=== PATIENT | female | born 1945 | race African-American/Black ===

== ENCOUNTER 2023-07-23 20:11 | Inpatient (IN) | payer MEDICARE, OTHER ==
[~2023-07-23] VITALS: Ht 177.8 cm; Wt 90.7 kg
[2023-07-23 21:58] LABS: BASOPHILS # (AUTO) 0.1 K/uL (0.0-0.2); BASOPHILS % (AUTO) 0.4 % (0.0-2.0); HEMATOCRIT 40 % (33-45); HEMOGLOBIN 12.4 g/dL (11.5-14.8); LYMPHOCYTES # (AUTO) 1.1 K/uL (0.8-4.8); LYMPHOCYTES % (AUTO) 7.7 % (20.0-44.0); MEAN CORPUSCULAR HEMOGLOBIN 22 PG (26.0-33.0); MEAN CORPUSCULAR HGB CONC 31 g/dl (31.0-36.0); MEAN CORPUSCULAR VOLUME 71 fL (82-100); MONOCYTES # (AUTO) 0.6 K/uL (0.1-1.30); MONOCYTES % (AUTO) 4.4 % (2.0-12.0); NEUTROPHILS # (AUTO) 12.4 K/uL (1.8-8.9); NEUTROPHILS % (AUTO) 87.5 % (43.0-81.0); PLATELET COUNT (AUTO) 146 K/uL (150-450); RED BLOOD CELL COUNT(AUTO) 5.58 MIL/uL (4.0-5.2); RED CELL DISTRIBUTION WIDTH 16.8 % (11.5-15.0); WHITE BLOOD COUNT (AUTO) 14.2 K/uL (4.3-11.0)
[2023-07-23 22:21] LABS: ALANINE AMINOTRANSFERASE 66 U/L (12-78); ALBUMIN 3.3 g/dL (3.4-5.0); ALKALINE PHOSPHATASE 171 U/L (46-116); ASPARTATE AMINOTRANSFERASE 40 U/L (15-37); BILIRUBIN,DIRECT 0.4 mg/dL (0.0-0.2); BILIRUBIN,TOTAL 1.1 mg/dL (0.2-1.0); CALCIUM, SERUM 10.2 mg/dL (8.5-10.1); CARBON DIOXIDE 23 mmol/L (21-32); CHLORIDE 96 mmol/L (98-107); CREATININE 1.4 mg/dL (0.6-1.3); GLUCOSE 189 mg/dL (74-106); POTASSIUM 4.5 mmol/L (3.5-5.1); SODIUM SERUM 131 mmol/L (136-145); TOTAL PROTEIN, SERUM 8.6 g/dL (6.4-8.2); UREA NITROGEN, BLOOD 14 mg/dL (7-18)
[2023-07-23 22:24] LABS: INR 1.06 (0.91-1.10); PROTHROMBIN TIME 11.2 SECS (9.2-11.1)
[2023-07-23 22:28] LABS: LACTIC ACID 4.1 mmol/L (0.4-2.0)
[2023-07-23] MEDS ORDERED: CEFTRIAXONE 1GM BAG (ER ONLY) 50 ML IV ONE (22:41)
[2023-07-23] MEDS ORDERED: AZITHROMYCIN 500 MG VIAL ONE (22:42)
[2023-07-23] MEDS: CEFTRIAXONE 1GM BAG (ER ONLY) 50 ML IV ONE (22:46)
[2023-07-23] MEDS: AZITHROMYCIN 500 MG in IV D5W 250 ML IV ONE (22:52)
[2023-07-23] MEDS ORDERED: ACETAMINOPHEN ES 500 MG TABLET ONE (23:27)
[2023-07-23] MEDS: ACETAMINOPHEN ES 500 MG TABLET PO ONE (23:30)
[2023-07-24] MEDS ORDERED: MAG HYDROX/AL HYDROX/SIMETH 30 ML UDC PO PRN
[2023-07-24] MEDS ORDERED: ONDANSETRON HCL/PF 4 MG/2 ML VIAL IVP PRN
[2023-07-24] MEDS ORDERED: Z GUARD REMEDY 4 OZ OINT TP PRN
[2023-07-24] MEDS ORDERED: ZOLPIDEM TARTRATE 5 MG TABLET PO PRN
[2023-07-24 00:19] LABS: APPEARANCE,URINE CLEAR (CLEAR); BILIRUBIN,URINE NEGATIVE (NEGATIVE); BLOOD, URINE 2+ Ery/uL (NEGATIVE); COLOR,URINE YELLOW (YELLOW); KETONES,URINE NEGATIVE (NEGATIVE); LEUKOCYTE ESTERASE ,URINE NEGATIVE (NEGATIVE); NITRITE, URINE NEGATIVE (NEGATIVE); PROTEIN,URINE 2+ mg/dl (NEGATIVE); UGLUCOSE NEGATIVE (NEGATIVE)
[2023-07-24 00:26] LABS: ADD URINE CULTURE NO; BACTERIA,URINE Rare /HPF (None Seen); SQUAMOUS EPITHELIAL CELL,UR Rare /HPF (None Seen); WBC,URINE 0-2 /HPF (0-3)
[2023-07-24 00:32] LABS: ALCOHOL, BLOOD < 3 mg/dL (0-10)
[2023-07-24 00:36] LABS: SERUM AMMONIA 7 umol/L (11-32)
[2023-07-24 00:40] LABS: AMPHETAMINE, URINE NEGATIVE (NEGATIVE); BARBITURATE, URINE NEGATIVE (NEGATIVE); BENZODIAZEPINE, URINE NEGATIVE (NEGATIVE); CANNABINOID, URINE NEGATIVE (NEGATIVE); COCCAINE, URINE NEGATIVE (NEGATIVE); OPIATE, URINE NEGATIVE (NEGATIVE); PHENCYCLIDINE SCREEN,URINE NEGATIVE (NEGATIVE)
[2023-07-24 00:46] LABS: THYROID STIMULATING HORMONE 1.973 uIU/mL (0.358-3.74)
[2023-07-24] MEDS: ACETAMINOPHEN 325 MG TABLET PO PRN (03:45)
[2023-07-24] MEDS: IV NS 0.9% 1,000 ML IV PRN (04:05)
[2023-07-24 07:25] LABS: BASOPHILS # (AUTO) 0.1 K/uL (0.0-0.2); BASOPHILS % (AUTO) 0.5 % (0.0-2.0); HEMATOCRIT 34 % (33-45); HEMOGLOBIN 10.8 g/dL (11.5-14.8); LYMPHOCYTES # (AUTO) 1.4 K/uL (0.8-4.8); MEAN CORPUSCULAR HEMOGLOBIN 22 PG (26.0-33.0); MEAN CORPUSCULAR HGB CONC 32 g/dl (31.0-36.0); MEAN CORPUSCULAR VOLUME 70 fL (82-100); MONOCYTES # (AUTO) 1.2 K/uL (0.1-1.30); MONOCYTES % (AUTO) 9.8 % (2.0-12.0); NEUTROPHILS # (AUTO) 9.3 K/uL (1.8-8.9); NEUTROPHILS % (AUTO) 77.7 % (43.0-81.0); PLATELET COUNT (AUTO) 169 K/uL (150-450); RED BLOOD CELL COUNT(AUTO) 4.91 MIL/uL (4.0-5.2); RED CELL DISTRIBUTION WIDTH 16.1 % (11.5-15.0)
[2023-07-24 08:00] VITALS: BP 142/80; TEMP 99.7; O2SAT 98
[2023-07-24] MEDS ORDERED: ENSURE ENLIVE CHOC 237 ML CAN PO SCH (08:00)
[2023-07-24 08:06] LABS: CALCIUM, SERUM 9.7 mg/dL (8.5-10.1); CARBON DIOXIDE 25 mmol/L (21-32); CHLORIDE 98 mmol/L (98-107); CREATININE 1.2 mg/dL (0.6-1.3); GLUCOSE 151 mg/dL (74-106); PHOSPHORUS 2.4 mg/dL (2.5-4.9); POTASSIUM 4.2 mmol/L (3.5-5.1); SODIUM SERUM 131 mmol/L (136-145); UREA NITROGEN, BLOOD 14 mg/dL (7-18)
[2023-07-24] MEDS: ASPIRIN 81 MG TAB.CHEW PO SCH (08:29)
[2023-07-24] MEDS ORDERED: ERGO500040 PO (08:48)
[2023-07-24] MEDS ORDERED: LEVO25TA9 PO (08:48)
[2023-07-24] MEDS ORDERED: VENL75TA4 PO (08:48)
[2023-07-24] MEDS ORDERED: QUET100T PO (08:48)
[2023-07-24] MEDS ORDERED: LITH300T3 PO (08:48)
[2023-07-24] MEDS: ENSURE ENLIVE CHOC 237 ML CAN PO SCH (09:00)
[2023-07-24 09:39] LABS: CHOLESTEROL 176 mg/dL (<200); HDL CHOLESTEROL 73 mg/dL (40-60); LDL 78 mg/dL (0-99); TRIGLYCERIDES 68 mg/dL (30-150)
[2023-07-24] MEDS: ATORVASTATIN 10 MG TABLET PO SCH (09:58)
[2023-07-24 12:00] VITALS: BP 139/74; TEMP 99.3; O2SAT 98
[2023-07-24] MEDS: MAGNESIUM HYDROXIDE 30 ML UDC PO PRN (13:04)
[2023-07-24 16:00] VITALS: BP 179/100; TEMP 100.2; O2SAT 96
[2023-07-24] MEDS: NEUTRA PHOS 1 POWD.PACKET PO ONE (16:09)
[2023-07-24 17:36] VITALS: BP 157/86; TEMP 100.2; O2SAT 98
[2023-07-24 20:00] VITALS: BP 150/81; TEMP 100.4; O2SAT 97
[2023-07-24] MEDS: CEFTRIAXONE 1 G in IV D5W 50 ML IV SCH (20:26)
[2023-07-24] MEDS: AZITHROMYCIN 500 MG in IV D5W 250 ML IV SCH (21:56)
[2023-07-24 22:26] VITALS: BP 150/81; TEMP 100.4; O2SAT 97
[2023-07-25] VITALS (7 sets, daily range): BP systolic 124–163; BP diastolic 78–97; TEMP 97.5–99.7; O2SAT 96–99
[2023-07-25 09:33] LABS: CALCIUM, SERUM 9.8 mg/dL (8.5-10.1); CREATININE 1.1 mg/dL (0.6-1.3); MAGNESIUM 2.4 mg/dL (1.8-2.4); PHOSPHORUS 2.3 mg/dL (2.5-4.9); POTASSIUM 4.3 mmol/L (3.5-5.1)
[2023-07-25 10:00] LABS: THYROID STIMULATING HORMONE 3.47 uIU/mL (0.358-3.74); URIC ACID 3.9 mg/dL (2.6-7.2)
[2023-07-25] MEDS ORDERED: FOLI0.4T6 PO (14:09)
[2023-07-25] MEDS: K PHOS NEUTRAL 250 MG TABLET PO ONE (16:02)
[2023-07-26 07:56] LABS: BASOPHILS # (AUTO) 0.1 K/uL (0.0-0.2); BASOPHILS % (AUTO) 1.2 % (0.0-2.0); EOSINOPHILS # (AUTO) 0.2 K/uL (0.0-0.7); EOSINOPHILS % (AUTO) 2.5 % (0.0-6.0); HEMATOCRIT 33 % (33-45); HEMOGLOBIN 10.4 g/dL (11.5-14.8); LYMPHOCYTES # (AUTO) 1.4 K/uL (0.8-4.8); LYMPHOCYTES % (AUTO) 19.3 % (20.0-44.0); MEAN CORPUSCULAR HEMOGLOBIN 22 PG (26.0-33.0); MEAN CORPUSCULAR HGB CONC 32 g/dl (31.0-36.0); MEAN CORPUSCULAR VOLUME 69 fL (82-100); MONOCYTES # (AUTO) 0.9 K/uL (0.1-1.30); MONOCYTES % (AUTO) 12.3 % (2.0-12.0); NEUTROPHILS # (AUTO) 4.6 K/uL (1.8-8.9); NEUTROPHILS % (AUTO) 64.7 % (43.0-81.0); PLATELET COUNT (AUTO) 209 K/uL (150-450); RED BLOOD CELL COUNT(AUTO) 4.72 MIL/uL (4.0-5.2); RED CELL DISTRIBUTION WIDTH 16.3 % (11.5-15.0); WHITE BLOOD COUNT (AUTO) 7.1 K/uL (4.3-11.0)
[2023-07-26 08:12] LABS: CREATINE KINASE, TOTAL 126 U/L (26-192)
[2023-07-26 08:26] VITALS: BP 152/70; TEMP 98.2; O2SAT 100
[2023-07-26 09:38] LABS: ALANINE AMINOTRANSFERASE 51 U/L (12-78); ALBUMIN 2.2 g/dL (3.4-5.0); ALKALINE PHOSPHATASE 145 U/L (46-116); ASPARTATE AMINOTRANSFERASE 46 U/L (15-37); BILIRUBIN,TOTAL 0.4 mg/dL (0.2-1.0); CALCIUM, SERUM 9.7 mg/dL (8.5-10.1); CARBON DIOXIDE 22 mmol/L (21-32); CHLORIDE 102 mmol/L (98-107); CREATININE 0.9 mg/dL (0.6-1.3); GLUCOSE 133 mg/dL (74-106); MAGNESIUM 2.1 mg/dL (1.8-2.4); POTASSIUM 3.8 mmol/L (3.5-5.1); SODIUM SERUM 134 mmol/L (136-145); TOTAL PROTEIN, SERUM 6.9 g/dL (6.4-8.2); UREA NITROGEN, BLOOD 12 mg/dL (7-18)
[2023-07-27 09:07] LABS: PTH, INTACT 29 pg/mL (15-65)
[2023-07-27 14:07] LABS: *SPE A/G RATIO 0.5 (0.7-1.7); *SPE ALPHA-1-GLOBULIN 0.5 g/dL (0.0-0.4); *SPE BETA GLOBULIN 0.8 g/dL (0.7-1.3); *SPE GLOBULIN, TOTAL 3.9 g/dL (2.2-3.9); *SPE PROTEIN TOTAL 5.9 g/dL (6.0-8.5); *SPEGAMMA GLOBULIN 1.7 g/dL (0.4-1.8)
== END 2023-07-26 12:14 | disposition left against medical advice (07) | DRG 871 ==
LOC: ER 20:16 → TELE 07-24 01:58 → MED 07-25 10:04
DX: A41.9 Sepsis, unspecified organism (principal); I21.A1 Myocardial infarction type 2; J15.9 Unspecified bacterial pneumonia; E87.1 Hypo-osmolality and hyponatremia; Z20.822 Contact with and (suspected) exposure to COVID-19; E03.9 Hypothyroidism, unspecified; F31.9 Bipolar disorder, unspecified; Z90.49 Acquired absence of other specified parts of digestive tract; Z98.890 Other specified postprocedural states; Z85.118 Personal history of other malignant neoplasm of bronchus and lung; R32 Unspecified urinary incontinence; F41.9 Anxiety disorder, unspecified; D50.9 Iron deficiency anemia, unspecified; N13.9 Obstructive and reflux uropathy, unspecified; F39 Unspecified mood [affective] disorder
CPT/HCPCS: 36415; 70450-TC; 71045-TC; 80048-TC; 80053-TC; 80061-TC; 80076-TC; 81001; 82140-TC; 82533; 82550-TC; 83605-TC; 83735-TC; 83970; 84100-TC; 84155; 84165; 84443-TC; 84484-TC; 84550-TC; 85025-TC; 85730-TC; 87040-TC; 87086-TC; 93307-TC; A4223; G0378; G0480; J0456; J0696; J7030; J7060